=== PATIENT | male | born 1960 | race Caucasian/White ===

== ENCOUNTER 2021-11-23 20:25 | Emergency (ER) | payer SELFPAY ==
[2021-11-23 21:13] VITALS: BP 134/90; PULSE 65; RESP 18; TEMP 37; O2SAT 96; BMI 32.1
--- NOTE | 2021-11-23 23:45 | ED_ITS ---
HPI - Wound/Laceration General Chief Complaint: Wound/Laceration Stated Complaint: Lac on hand Time Seen by Provider: 11/23/21 23:45 Source: patient Mode of arrival: ambulatory Limitations: no limitations History of Present Illness HPI narrative: This is a 60-year-old male presenting to the emergency department with complaints of laceration to the right forearm status post cutting himself on plastic while at a friend's house tonight. Patient tells me that he is not on blood thinners, the area is not bleeding. He reports no pain. Denies numbness or tingling. Tells me he is not up-to-date on a tetanus shot. Related Data Allergies Allergy/AdvReac Type Severity Reaction Status Date / Time No Known Allergies Allergy Verified 11/23/21 21:13 Review of Systems Review of Systems: Constitutional : No Fever, No Chills, Cardiovascular : No Chest Pain, No SOB Respiratory : No Dyspnea Gastrointestinal : No abdominal pain Musculoskeletal : No Joint Swelling Skin : No rash, positive skin laceration Neuro : No Weakness, No Numbness Psych : No SI/HI Yes all other systems are reviewed and are negative [facility] Past Medical History Attestation statement: The following information was validated with the patient. Source: old records reviewed and nursing notes reviewed Physical Exam Vital Signs: Vital Signs: Last Vital Signs Temp 98.6 F 11/23/21 21:13 Pulse 65 11/23/21 21:13 Resp 18 11/23/21 21:13 BP 134/90 H 11/23/21 21:13 Pulse Ox 96 11/23/21 21:13 O2 Del Method 11/23/21 21:13 BMI result Body Mass Index 32.1 Vital signs stable Appearance: Alert.? Oriented X3.? No acute distress.? Head: Normocephalic, atraumatic, no step-offs or deformities Neck: Normal inspection.? Neck supple.? CVS: Normal heart rate and rhythm.? Pulses normal.? Respiratory: No respiratory distress.? Breath sounds normal.? Abdomen: Soft and nontender.? Skin: Skin warm and dry.? Normal skin color.? Normal skin turgor.?+ laceration (image below) Extremities: No lower extremity edema.? No calf ttp. 5/5 strength to bilateral upper and lower extremities Neuro: Oriented X 3.? No motor deficit.? No sensory deficit. CN 2-12 intact MDM - Wound/Laceration MDM Narrative Medical decision making narrative: 1944 60-year-old male presenting with a laceration to the right forearm, accidental, consult with Plastic. Not on blood thinners. Denies numbness or tingling. Up-to-date on a tetanus shot. Physical examination significant for laceration to the right forearm, images in chart. Plan at this time is to suture the area. Patient will receive a Boostrix shot. Medical Records Attestation: I reviewed the patient's medical records. Lab Data Attestation: I reviewed the patient's lab results. Critical Care Time Critical Care Time Critical Care Time: No Discharge Plan Discharge Clinical Impression: Laceration Patient Disposition: Home, Self-Care Additional Instructions: Take your medications as prescribed. If you were prescribed antibiotics today, it is important that you take your medication to their entirety, do not skip any doses, do not finish them early. Follow-up with your primary care provider this week. Return to the emergency department with new or worsening symptoms. Such as fevers, chills, chest pain, shortness of breath, nausea, vomiting, dizziness, headache, vision changes, lethargy, numbness, tingling In case of emergency call 911 Return in 7-10 days for suture removal. Referrals: PhysicianBraulio [Primary Care Provider] - 2 days
--- NOTE | 2021-11-24 | PC.NURSE ---
pt called multiple times from waiting room with no responce.
== END 2021-11-24 | disposition home or self-care (01) ==
LOC: HO.ED 23:55
PROVIDERS: Emergency Provider Emergency Medicine
DX: S61.411A Laceration without foreign body of right hand, initial encounter (principal); W26.9XXA Contact with unspecified sharp object(s), initial encounter; Y93.9 Activity, unspecified; Y92.9 Unspecified place or not applicable; Y99.9 Unspecified external cause status
CPT/HCPCS: 96372; 99281; 99284